=== PATIENT | female | born 1955 | race Caucasian/White ===

== ENCOUNTER 2018-01-19 14:03 | Outpatient (CLI) | payer BC | END 2018-01-19 14:04 | disposition home or self-care (01) | LOC: BICMAMMO 14:03 | PROVIDERS: ATTEND Family Medicine | DX: Z12.31 Encounter for screening mammogram for malignant neoplasm of breast (principal) | CPT/HCPCS: 77063; 77067 ==

== ENCOUNTER 2018-04-22 08:08 | Outpatient (CLI) | payer BC ==
--- NOTE | 2018-04-22 10:18 | CT ---
CT ABDOMEN AND PELVIS NONCONTRAST: 04/22/2018 HISTORY: Blood in urine last month. Left-sided abdominal pain. Kidney stones. Hematuria. COMPARISON: 09/27/2016 FINDINGS: The small wedge-shaped density in the right middle lobe is again seen, probably related to mild scarr ing in the right middle lobe. The lung bases are otherwise clear. Multiple calcified granulomata are seen within the spleen, with a few scattered calcified granuloma i n the liver. There are nonobstructing left renal calculi, measuring 3 to 4 mm, unchanged from the prior study. Th e previously noted calculus within the left renal pelvis is not visualized. There is no overt hydron ephrosis present, but there is a distal left ureteral calculus, measuring approximately 3 to 4 mm. No right renal or ureteral calculus is seen. The pancreas, bilateral adrenal glands, and partially distended urinary bladder demonstrate a grossly normal nonenhanced CT appearance. IMPRESSION: 1. Distal left ureteral calculus, measuring 5 mm x 3 x 4 mm. No overt hydronephrosis or hydroureter is appreciated. 2. Stable nonobstructing left nephrolithiasis. 3. Hysterectomy. 4. Small to moderate amount of retained fecal material throughout the colon. POS: ARABELLA
== END 2018-04-22 08:09 | disposition home or self-care (01) ==
LOC: SCSCT 08:08
PROVIDERS: ATTEND Urology
DX: N20.2 Calculus of kidney with calculus of ureter (principal); R31.9 Hematuria, unspecified; Z90.710 Acquired absence of both cervix and uterus
CPT/HCPCS: 74176

== ENCOUNTER 2018-05-05 05:38 | Emergency (ER) | payer BC ==
[2018-05-05 06:09] LABS: Mean Corpuscular HGB CONC 33.3 g/dL (32.0-36.0); Mean Platelet Volume 7.5 fL (7.4-10.4); Platelet Count 275 thou/uL (130-400); Red Blood Cell (RBC) Count 4.69 mill/uL (4.20-5.40); White Blood Cell (WBC) Count 11.1 thou/uL (4.8-10.8)
[2018-05-05] MEDS ORDERED: Ondansetron PF 4 MG/2 ML Vial ONE (06:21)
[2018-05-05] MEDS ORDERED: Ketorolac Tromethamine 30 MG/ML VIAL ONE (06:21)
[2018-05-05 06:26] LABS: ALT (SGPT) 21 U/L (8-55); AST (SGOT) 29 U/L (5-34); Albumin 4.6 g/dL (3.5-5.0); Alkaline Phosphatase 70 U/L (40-150); Anion Gap 13 mmol/L (10-20); BUN (Urea Nitrogen) 20 mg/dL (9.8-20.1); Band 11 % (5-11); Bilirubin, Total 0.9 mg/dL (0.2-1.2); Calc. Creatinine Clearance 0 mL/min (70-130); Calcium 10.4 mg/dL (7.8-10.44); Carbon Dioxide 25 mmol/L (22-29); Chloride 100 mmol/L (98-107); Estimated GFR-MDRD 57; Globulin 3.2 g/dL (2.4-3.5); Glucose 114 mg/dL (70-105); MDiff Complete? YES; Monocytes 7 % (0-10); Neutrophil 82 % (42-75); Potassium 4.4 mmol/L (3.5-5.1); Protein, Total 7.8 g/dL (6.0-8.3); Sodium 134 mmol/L (136-145)
[2018-05-05 06:34] LABS: Bilirubin Negative (Negative); Blood, Urine Large (Negative); Clarity CLEAR (Clear); Glucose, Urine (Dipstick) Negative (Negative); Leukocyte Negative (Negative); Nitrite Negative (Negative); Protein, Urine (Dipstick) Negative (Neg-Trace); Specific Gravity, Urine 1.012 (1.002-1.036); Urobilinogen 0.2 mg/dL (0.2-1.0)
[2018-05-05 06:37] LABS: Bacteria/HPF None Seen HPF (None Seen); Hyaline Casts/LPF 0-3 HYALINE CAST LPF (0-3 Hyaline); Pathc Cast-AUWi Flag 0.43 (0-2.49); Squamous Epithelial 0-3 HPF (0-3); WBC/HPF 0-3 HPF (0-3)
--- NOTE | 2018-05-05 08:38 | CT ---
PRELIMINARY REPORT/[facility]/EMERGENCY AFTER HOURS PROCEDURE: EXAM: CT Abdomen and Pelvis Without Contrast EXAM DATE/TIME: 05/05/2018 6:27 AM CLINICAL HISTORY: 62 years old, female; Pain; Abdominal pain; Flank; Left; Prior surgery; Surgery date: 6+ months; Surg mehreen type: Hysterectomy, stone and appy. All 20 yrs ago; Patient HX: F62 presents to ed for genitourin prabhjot SX and vomiting. PT reports the pain is over her left kidney and has a kidney stone. PT has been unable to take medicine bc vomiting. PT reports some nausea at the moment. TECHNIQUE: Axial computed tomography images of the abdomen and pelvis without contrast. Coronal reformatted imag es were created and reviewed. COMPARISON: No relevant prior studies available. FINDINGS: Lower thorax: The visualized portions of the lung bases are normal. ABDOMEN: Liver: The liver demonstrates punctate calcifications, consistent with remote granulomatous organism exposure. Gallbladder and bile ducts: The gallbladder is normal. There is no evidence of biliary ductal dilatio n. Pancreas: The pancreas appears normal. No ductal dilatation. Spleen: The spleen demonstrates punctate calcifications, consistent with remote granulomatous organis m exposure. Adrenals: The adrenal glands are normal. Kidneys and ureters: The right kidney is normal. There is a 4 x 2 x 5 mm obstructing calculus at the distal LEFT ureter with associated moderate LEFT hydroureteronephrosis and perinephric stranding. The re are additional nonobstructing LEFT renal pelvic calculi. Stomach and bowel: The stomach is normal. There is moderate colonic constipation. Appendix: The appendix is not identified on this exam without contrast. PELVIS: Bladder: The bladder is normal. Reproductive: The uterus is not visualized, and may be atrophic or surgically absent. ABDOMEN and PELVIS: Intraperitoneal space: Normal. No free air. No significant fluid collection. Bones/joints: No acute fracture. No dislocation. Soft tissues: Unremarkable. Vasculature: Normal. No abdominal aortic aneurysm. Lymph nodes: Normal. No enlarged lymph nodes. IMPRESSION: There is a 4 x 2 x 5 mm obstructing calculus at the distal LEFT ureter with associated moderate LEFT hydroureteronephrosis and perinephric stranding. Thank you for allowing us to participate in the care of your patient. Dictated and Authenticated by: Barry Baumann MD 05/05/2018 7:26 AM Central Time ([place] & [place]) FINAL REPORT CT ABDOMEN AND PELVIS WITHOUT CONTRAST: Date: 05/05/18 FINDINGS/IMPRESSION: I agree with the preliminary report given by Yazan. POS: ARABELLA
== END 2018-05-05 07:55 | disposition home or self-care (01) ==
LOC: ERS 05:38
DX: N13.2 Hydronephrosis with renal and ureteral calculous obstruction (principal)
CPT/HCPCS: 36415; 74176; 80053; 81003; 81015; 85025; 87086; 96361; 96374; 96375; J1885; J2405

== ENCOUNTER 2018-05-18 06:53 | Outpatient (CLI) | payer BC | END 2018-05-18 06:54 | disposition home or self-care (01) | LOC: LABBT 06:53 | PROVIDERS: ATTEND Urology | DX: Z01.812 Encounter for preprocedural laboratory examination (principal); N20.2 Calculus of kidney with calculus of ureter; N39.0 Urinary tract infection, site not specified; R31.9 Hematuria, unspecified | CPT/HCPCS: 81001; 83970; 87086 ==

== ENCOUNTER 2018-05-19 06:33 | Day surgery (SDC) | payer BC ==
[2018-05-18 16:04] VITALS: BMI 18.2
[2018-05-19] MEDS ORDERED: CEFAZOLIN 2 GM/50 ML BAG ONE (07:15)
[2018-05-19] MEDS ORDERED: Iothalamate Meglumine 60% 50 ML VIAL FS ONE (07:44)
--- NOTE | 2018-05-19 07:56 | RAD ---
KUB: Date: 05-19-18 Comparison: 10-02-16 History: Pre-operative patient, history of obstructing stone within left ureter. FINDINGS: There are numerous calcifications within the pelvis, the majority of which appear to represent vascul ar calcification. CT examination performed 05-05-18 demonstrated a stone within the distal left urete r, not discretely visualized on this examination. This calcification may have passed or maybe obscure d by stool in the colon and bowel gas. There are punctate calcifications in bilateral upper quadrants , left greater than right, suggesting a combination of granulomatous calcification within the liver a nd spleen as well as punctate stones within the left kidney. IMPRESSION: Abdominal and pelvic calcifications as above. No definitive correlate is seen on this examination for the obstructing stone seen within the distal left ureter on the prior CT exam. Please see above disc ussion. POS: ARABELLA
[2018-05-19] MEDS ORDERED: Midazolam HCl 2 mg/2 ml Vial ONE (08:54)
[2018-05-19] MEDS ORDERED: Fentanyl 100 MCG/2 ML VIAL ONE (08:54)
[2018-05-19] MEDS ORDERED: HYDROcodone/Acetaminophen 5/325 mg Tablet ONE (11:04)
[2018-05-19] MEDS ORDERED: Lidocaine 1% PF 5 ML VIAL ONE (12:54)
[2018-05-19] MEDS ORDERED: PHENYLEPHRINE-NS 100 MCG/ML 10 ML SYRINGE ONE (12:54)
[2018-05-19] MEDS ORDERED: Dexamethasone 20 MG/5 ML VIAL ONE (12:54)
[2018-05-19] MEDS ORDERED: Ondansetron PF 4 MG/2 ML Vial ONE (12:54)
[2018-05-19] MEDS ORDERED: PROPOFOL 200 MG/20 ML VIAL ONE (12:54)
--- NOTE | 2018-05-20 13:33 | OP ---
DATE OF PROCEDURE: 05/19/2018 PREOPERATIVE DIAGNOSIS: Left ureteral stone. POSTOPERATIVE DIAGNOSIS: Left ureteral stone. PROCEDURES PERFORMED: Cystoscopy, left ureteroscopy, holmium laser lithotripsy, stone basketing, and stent placement 6 x 26 with string. COMPLICATIONS: None. FINDINGS: Stone impacted and starting to be incorporated in the mucosa of the distal ureter. INDICATION FOR PROCEDURE: The patient is a 62-year-old female, who was seen in the office for distal stone and was trying spontaneous passage. She ultimately had to return to the ER on for further pain, but was discharged and had 1 other episode of severe pain prior to actually being set up for definitive stone therapy. By that time, she was having no pain and the urine was negative for infection, so she was set up. DESCRIPTION OF PROCEDURE: The patient was brought into the room by Anesthesia, laid on the table in supine position. After receiving general anesthetic, the legs were placed in lithotomy position with herleft leg lower and the right leg elevated and her perineum was prepped and draped in a sterile fashion. Using a 22-Norwegian cystoscope and 30 degree lens, urethra was traversed and the bladder was inspected. The ureteral orifices were identified in normal position. The right appeared normal and the left was edematous and erythematous consistent with an impacted distal stone. [place] catheter with wire was unable to pass the stones. A Glidewire was used and this was able to pass up to the renal pelvis. Then, the [place] catheter passed beyond that into the renal pelvis. No hydronephrotic drip was noted. A retrograde pyelogram was performed with no hydronephrosis with nicely cupped calyces. Measurements were taken for 6 x 26 double-J stent. The wire was left in place and then a dilating sheath catheter was placed, 15-Norwegian x 6 cm. It was blown up to a level of 12 mmHg. Fluoroscopy confirmed the wound was fully inflated, then it was taken down and leaving the wire in place. The bladder was drained and cystoscope removed entirely and then a rigid ureteroscope was used to go through the UO and up to the distal ureter. Only edema was noted at first within the ureter. Then I went beyond the stone and carefully brought back out noting an elevation and protrusion in the mucosa consistent with the stone being incorporated into the wall. At this point, the laser was used to both release and fragment the stone, which came out nicely and then was fragmented into pieces that were small enough to be extracted. All pieces were extracted and sent for specimen. This only required two passes. The third pass was used to ensure all stone fragments were gone and then the ureteroscope was removed in its entirety and the cystoscope back fed over the wire and a 6 x 26 double-J was placed over wire with a good coil visualized in the renal pelvis via fluoroscopy and a good curl visualized in the bladder via cystoscopy. The scope was broken apart. Bladder drained carefully leaving the string intact and then removed entirely with the string being secured to the patient's inner thigh. The stone was sent for specimen. The patient was then awakened and transferred to PACU in stable condition. Job ID: [id number] [facility]
[2018-05-22 10:25] LABS: CA Oxalate Dihydrate 75 % (.); CA Oxalate Monohydrate 15 % (.); CA Phosphate 10 % (.); Color Tan (.); Stone Weight 9.6 mg (.)
== END 2018-05-19 12:24 ==
LOC: SDC 06:33
PROVIDERS: ATTEND Urology
PROC: 0T778DZ Dilation of Left Ureter with Intraluminal Device, Via Natural or Artificial Opening Endoscopic (ICD-10-PCS; principal; 2018-05-19)
PROC: 0TF78ZZ Fragmentation in Left Ureter, Via Natural or Artificial Opening Endoscopic (ICD-10-PCS; principal; 2018-05-19)
DX: N20.1 Calculus of ureter (principal); J30.9 Allergic rhinitis, unspecified; Z90.710 Acquired absence of both cervix and uterus; Z90.722 Acquired absence of ovaries, bilateral; Z90.49 Acquired absence of other specified parts of digestive tract; Z90.89 Acquired absence of other organs; Z91.041 Radiographic dye allergy status; Z79.899 Other long term (current) drug therapy; Z98.890 Other specified postprocedural states
CPT/HCPCS: 74018; 76000; 82365; 88300; C1758; C1769; J2250; J3010; Q9961

== ENCOUNTER 2018-09-09 13:00 | Outpatient (CLI) | payer BC ==
--- NOTE | 2018-09-09 13:44 | ULT ---
BILATERAL RENAL ULTRASOUND: Date: 09/09/18 HISTORY: Calculus of ureter. FINDINGS: The right kidney measures 8.6 cm in length and the left kidney measures 9.0 cm in length. No focal ma ss or hydronephrosis seen. No shadowing calculi are identified. Urinary bladder is unremarkable. Bila teral ureteral jets are present. IMPRESSION: Normal exam. POS: [facility]
== END 2018-09-09 13:01 | disposition home or self-care (01) ==
LOC: BICULT 13:00
PROVIDERS: ATTEND Urology
DX: N20.1 Calculus of ureter (principal)
CPT/HCPCS: 76770

== ENCOUNTER 2020-09-04 12:55 | Outpatient (CLI) | payer BC | END 2020-09-04 12:56 | disposition home or self-care (01) | LOC: BICMAMMO 12:55 | PROVIDERS: ATTEND Family Medicine | DX: Z12.31 Encounter for screening mammogram for malignant neoplasm of breast (principal) | CPT/HCPCS: 77063; 77067 ==

== ENCOUNTER 2023-07-03 09:18 | Outpatient (CLI) | payer MEDICARE, BC | END 2023-07-03 09:19 | disposition home or self-care (01) | LOC: BICMAMMO 09:18 | PROVIDERS: ATTEND Nurse Practitioner Family | DX: Z12.31 Encounter for screening mammogram for malignant neoplasm of breast (principal); Z13.820 Encounter for screening for osteoporosis; M81.0 Age-related osteoporosis without current pathological fracture; Z78.0 Asymptomatic menopausal state; Z98.890 Other specified postprocedural states | CPT/HCPCS: 77063; 77067; 77080 ==